=== PATIENT | female | born 1970 | race Hispanic/Latino ===

== ENCOUNTER 2017-05-20 12:34 | Emergency (ER) | payer OTHER ==
[~2017-05-20] VITALS: Ht 160 cm; Wt 75.3 kg
[~2017-05-20 12:34] MED LIST: CELEXA10 M1 GT; LIBRIUM25 MG PO; LIPITOR10 MG PO; MOBIC15 MG PO; NORVASC10 MG PO; OxyCODONE PO; PERCOCET 5/31 TABLET PO; PRILOSEC40 MG PO; Proventil,Ventolin H IH; Skelaxin PO; Toprol XL PO; Tylenol Extra Streng PO; Vicodin,Lortab 5/500 PO; Wellbutrin XL PO; ZESTRIL,PRINIVI10 MG PO; celeBREX PO; celeXA PO
[2017-05-20 12:43] VITALS: BP 150/98
[2017-05-20 13:59] LABS: HEMATOCRIT 43.6 % (36.0-46.0); MCH 30.2 PG (29.0-34.0); MCHC 34.4 G/DL (30.0-36.0); MCV 87.9 FL (83-99); MEAN PLAT.VOLUME 9.4 uM^3 (9.5-12.4); PLATELET COUNT 199 K/uL (156-360); RBC DIS.WIDTH-CV 12.4 % (11.8-14.6); RBC DIS.WIDTH-SD 40.1 % (39-53); RED BLOOD COUNT 4.96 M/uL (3.80-5.20)
[2017-05-20 14:11] LABS: CHLORIDE 106 mEq/L (99-109); POTASSIUM 4.4 mEq/L (3.7-5.4); SODIUM 138 mEq/L (136-147)
[2017-05-20 14:12] LABS: GLUCOSE 115 mg/dL (70-99)
[2017-05-20 14:14] LABS: ANION GAP 7 MEQ/L (2-14)
[2017-05-20 14:15] LABS: SERUM ETHYL ALCOHOL < 10 mg/dL
[2017-05-20 14:16] LABS: GFR ESTIMATE (CALCULATED) > 59 mL/min/
[2017-05-20 14:17] LABS: UREA NITROGEN (BUN) 12 mg/dL (9-23)
== END 2017-05-20 15:59 | disposition left against medical advice (07) ==
LOC: EME 12:34
DX: F31.9 Bipolar disorder, unspecified (principal); I10 Essential (primary) hypertension; Z98.84 Bariatric surgery status; F17.200 Nicotine dependence, unspecified, uncomplicated
CPT/HCPCS: 80048; 85027; 90839; 99281; 99283; G0480